=== PATIENT | female | born 1985 | race Caucasian/White ===

== ENCOUNTER 2023-04-21 09:05 | Outpatient (CLI) | payer OTHER ==
[2023-04-21 10:04] LABS: THYROID STIMULATING HORMONE 1.52 uIU/mL (0.34-5.60)
== END 2023-04-21 09:06 | disposition home or self-care (01) ==
LOC: LAB 09:05
PROVIDERS: ATTEND Nurse Practitioner
DX: O99.283 Endocrine, nutritional and metabolic diseases complicating pregnancy, third trimester (principal); E07.9 Disorder of thyroid, unspecified
CPT/HCPCS: 36415; 84439; 84443

== ENCOUNTER 2023-05-10 11:23 | Outpatient (CLI) | payer OTHER ==
--- NOTE | 2023-05-11 08:39 | Ultrasound Report ---
PROCEDURE: OB Biophysical Profile INDICATIONS: SUPERVISION OF HIGH RISK OUTSIDE/PRIOR DATING DATA: Last menstrual period (LMP): Not available. LMP-based estimated date of delivery (TANYA): Not available. First dating scan (date and location[facility]. Estimated date of delivery (TANYA) from first dating scan: 06/08/2023. TECHNIQUE: Real-time scanning was performed of the fetus, with image documentation and biometric genesis surements. Biophysical profile was also obtained. COMPARISON: None. FINDINGS: General: A single living intrauterine gestation is present. Presentation: Vertex Placenta: Placental position is posterior, without previa. Amniotic fluid index: 16.6 cm, with largest pocket 4.5 cm. heart rate: 169 beats per minute. Maternal cervical canal: 3.7 cm long; normal length is 2.5 cm or more. biometrics: Not performed Composite gestational age from initial scan: 35 weeks 6 days Measurement variability in biometric dating: +/- 10 days from 12-20 weeks gestation, +/- 2 weeks from 20-30 weeks gestation, +/- 3 weeks at 30 weeks gestation or later. Biophysical profile: Tone: 2 points. Movement: 2 points. Respiration: 2 points. Largest pocket of fluid: 2 points. Cord Doppler: S/D = 2.0-2.6. Other: Moderate hydronephrosis of the left kidney. No right hydronephrosis. IMPRESSION: 1. A single living IUP redemonstrated. The estimated gestational age is 35 weeks 6 days based on the initial outside ultrasound report. 2. biophysical profile score 8 out of 8. 3. Normal cord Doppler with preserved diastolic flow. 4. anatomy is severely limited. There is moderate hydronephrosis in the left kidney. Reviewed by: Jasiel Kaur MD on 05/11/2023 8:37 AM PDT Approved by: Jasiel Kaur MD on 05/11/2023 8:37 AM PDT Station ID: [id number]
== END 2023-05-10 11:24 | disposition home or self-care (01) ==
LOC: DI 11:23
PROVIDERS: ATTEND Nurse Practitioner
DX: O09.893 Supervision of other high risk pregnancies, third trimester (principal); O09.813 Supervision of pregnancy resulting from assisted reproductive technology, third trimester; O35.EXX0 Maternal care for other (suspected) fetal abnormality and damage, fetal genitourinary anomalies, not applicable or unspecified; Z3A.35 35 weeks gestation of pregnancy

== ENCOUNTER 2023-05-13 07:53 | Outpatient (CLI) | payer OTHER ==
[2023-05-13 08:09] VITALS: BP 123/79
--- NOTE | 2023-05-19 22:55 | PROCEDURE REPORT ---
- HPI Diagnosis/Indication for NST: Other (ivf ) Current EDU 06/08/23 Gestation 36 Weeks and 2 Days 1 Para 0 Vital Signs Temperature 98.2 F 05/13/23 08:04 Heart Rate 85 05/13/23 08:04 Respiratory Rate 16 05/13/23 08:04 Blood Pressure 123/79 05/13/23 08:04 Temperature 98.2 F 05/13/23 08:04 Heart Rate 85 05/13/23 08:04 Respiratory Rate 16 05/13/23 08:04 Blood Pressure 123/79 05/13/23 08:04 O2 Saturation If not protocol: Oxygen Flow, liters/minute - NST Procedure NST Procedure Start Date 05/13/23 Start Time 08:01 Stop Time 08:22 Patient States Movement Yes NST reviewed baseline 130. + acels, no decels. reactive NST. follow up as arranged. - Results and Plan Findings/Impression: reactive nst
== END 2023-05-13 08:25 | disposition home or self-care (01) ==
LOC: WFO 07:53 → FBP 07:54 → WFO 08:25
PROVIDERS: ATTEND Obstetrics & Gynecology
DX: O09.893 Supervision of other high risk pregnancies, third trimester (principal); O09.813 Supervision of pregnancy resulting from assisted reproductive technology, third trimester; Z3A.36 36 weeks gestation of pregnancy
CPT/HCPCS: 59025

== ENCOUNTER 2023-05-17 08:00 | Outpatient (CLI) | payer OTHER | END 2023-05-17 23:59 | disposition home or self-care (01) | LOC: LAB.WC 08:00 | PROVIDERS: ATTEND Obstetrics & Gynecology | DX: O09.893 Supervision of other high risk pregnancies, third trimester (principal) | CPT/HCPCS: 87797 ==

== ENCOUNTER 2023-05-17 09:26 | Outpatient (CLI) | payer OTHER ==
[2023-05-17 09:46] VITALS: BP 124/79
--- NOTE | 2023-05-17 10:59 | PROCEDURE REPORT ---
- HPI Current EDU 06/08/23 Gestation 36 Weeks and 6 Days 1 Para 0 Vital Signs Temperature 98.2 F 05/17/23 09:33 Heart Rate 75 05/17/23 09:33 Respiratory Rate 16 05/17/23 09:33 Blood Pressure 124/79 05/17/23 09:33 Temperature 98.2 F 05/17/23 09:33 Heart Rate 75 05/17/23 09:33 Respiratory Rate 16 05/17/23 09:33 Blood Pressure 124/79 05/17/23 09:33 O2 Saturation If not protocol: Oxygen Flow, liters/minute - NST Procedure NST Procedure Start Date 05/17/23 Start Time 09:38 Stop Time 10:05 Vibroacoustic Stimulation Used No Patient States Movement Yes - Results and Plan Plan: Patient is a 38-year-old G1, P0 at at 36 weeks 6 days gestation here for scheduled NST. NST Performed 05/17/2023 NST Read 05/17/2023 FHT: 130 bpm baseline, moderate variability, accelerations present, no decelerations. Reactive NST [place]: Quiescent Diagnosis 36 weeks gestation IVF Supervision of high-risk Continue with twice-weekly NST.
== END 2023-05-17 10:10 | disposition home or self-care (01) ==
LOC: WFO 09:26 → FBP 09:27 → WFO 10:10
PROVIDERS: ATTEND Obstetrics & Gynecology
DX: O09.813 Supervision of pregnancy resulting from assisted reproductive technology, third trimester (principal); O35.8XX0 Maternal care for other (suspected) fetal abnormality and damage, not applicable or unspecified; Z3A.36 36 weeks gestation of pregnancy
CPT/HCPCS: 59025; 87797

== ENCOUNTER 2023-05-20 07:52 | Outpatient (CLI) | payer OTHER ==
[2023-05-20 08:09] VITALS: BP 122/75
--- NOTE | 2023-05-20 11:32 | PROCEDURE REPORT ---
- HPI Diagnosis/Indication for NST: Other (IVF ) Current EDU 06/08/23 Gestation 37 Weeks and 2 Days 1 Para 0 Vital Signs Temperature 98.2 F 05/20/23 07:59 Heart Rate 80 05/20/23 07:59 Respiratory Rate 16 05/20/23 07:59 Blood Pressure 122/75 05/20/23 07:59 Temperature 98.2 F 05/20/23 07:59 Heart Rate 80 05/20/23 07:59 Respiratory Rate 16 05/20/23 07:59 Blood Pressure 122/75 05/20/23 07:59 O2 Saturation If not protocol: Oxygen Flow, liters/minute - NST Procedure NST Procedure Start Date 05/20/23 Start Time 08:03 Stop Time 08:32 Vibroacoustic Stimulation Used No Patient States Movement Yes 120 mod dottie + A cells no D cells, reactive & reassuring. - Results and Plan Findings/Impression: reactive and reassuring Plan: continue scheduled ANC.
== END 2023-05-20 08:30 | disposition home or self-care (01) ==
LOC: WFO 07:52 → FBP 07:53 → WFO 08:30
PROVIDERS: ATTEND Obstetrics & Gynecology
DX: O09.813 Supervision of pregnancy resulting from assisted reproductive technology, third trimester (principal); Z3A.37 37 weeks gestation of pregnancy
CPT/HCPCS: 59025

== ENCOUNTER 2023-05-24 08:44 | Outpatient (CLI) | payer OTHER ==
--- NOTE | 2023-05-24 14:49 | Ultrasound Report ---
PROCEDURE: OB Biophysical Profile INDICATIONS: SUPERVISION OF HIGH RISK OUTSIDE/PRIOR DATING DATA: Last menstrual period (LMP): Not available. LMP-based estimated date of delivery (TANYA): Not available. First dating scan (date and location): 05/10/2023, Dr. Puga's office. Estimated date of delivery (TANYA) from first dating scan: 06/08/2023. TECHNIQUE: Real-time scanning was performed of the fetus, with image documentation and biometric genesis surements. Biophysical profile was also obtained. Endovaginal scanning: Not performed COMPARISON: OB ultrasound dated 05/17/2023, 05/10/2023 FINDINGS: General: A single living intrauterine gestation is present. Presentation: Vertex Placenta: Placental position is posterior, without previa. Amniotic fluid index: 15.6 cm, 64.1% for gestational age. heart rate: 138 beats per minute. Maternal cervical canal: 3.9 cm long; normal length is 2.5 cm or more. Biophysical profile: Tone: 2 points. Movement: 2 points. Respiration: 2 points. Largest pocket of fluid: 2 points. Umbilical artery Doppler: 4.4, 3.5, 2.8 There is incidentally noted hydronephrosis of the left renal kidney. IMPRESSION: 1. 8 biophysical profile. 2. Abnormally elevated umbilical artery S/D ratios. 3. Left hydronephrosis. renal ultrasound recommended for follow-up. Reviewed by: Junie Lawrence MD on 05/24/2023 2:47 PM PST Approved by: Junie Lawrence MD on 05/24/2023 2:47 PM PST Station ID: [id number]
== END 2023-05-24 08:45 | disposition home or self-care (01) ==
LOC: DI 08:44
PROVIDERS: ATTEND Nurse Practitioner
DX: O09.893 Supervision of other high risk pregnancies, third trimester (principal); O09.813 Supervision of pregnancy resulting from assisted reproductive technology, third trimester; O35.8XX0 Maternal care for other (suspected) fetal abnormality and damage, not applicable or unspecified; Z3A.00 Weeks of gestation of pregnancy not specified

== ENCOUNTER 2023-05-24 08:47 | Outpatient (CLI) | payer OTHER ==
[2023-05-24 09:35] VITALS: BP 129/83; O2SAT 99
--- NOTE | 2023-05-28 11:55 | PROCEDURE REPORT ---
- HPI Current EDU 06/08/23 Gestation 37 Weeks and 6 Days 1 Para 0 Vital Signs Temperature 98.2 F 05/24/23 08:50 Temperature 98.2 F 05/24/23 09:31 Heart Rate 72 05/24/23 09:31 Respiratory Rate 17 05/24/23 09:31 Blood Pressure 129/83 H 05/24/23 09:31 O2 Saturation 99 05/24/23 09:31 If not protocol: Oxygen Flow, liters/minute NST reviewed in real time. moderate variability. + acels. no decels. baseline 130. - NST Procedure NST Procedure Start Date 05/24/23 Start Time 09:30 Stop Time 09:52 Vibroacoustic Stimulation Used No Patient States Movement Yes - Results and Plan Findings/Impression: reactive NST Plan: care as scheduled.
== END 2023-05-24 09:55 | disposition home or self-care (01) ==
LOC: FBP 08:47 → WFO 08:47
PROVIDERS: ATTEND Obstetrics & Gynecology
DX: O09.813 Supervision of pregnancy resulting from assisted reproductive technology, third trimester (principal); O09.513 Supervision of elderly primigravida, third trimester; O09.893 Supervision of other high risk pregnancies, third trimester; O35.8XX0 Maternal care for other (suspected) fetal abnormality and damage, not applicable or unspecified; Z3A.37 37 weeks gestation of pregnancy
CPT/HCPCS: 59025

== ENCOUNTER 2023-05-27 07:52 | Outpatient (CLI) | payer OTHER | END 2023-05-27 07:53 | disposition home or self-care (01) | LOC: WFO 07:52 | PROVIDERS: ATTEND Obstetrics & Gynecology | DX: Z53.9 Procedure and treatment not carried out, unspecified reason (principal) ==

== ENCOUNTER 2023-05-27 07:54 | Outpatient (CLI) | payer OTHER ==
[2023-05-27 08:06] VITALS: BP 129/85
--- NOTE | 2023-05-27 08:45 | PROCEDURE REPORT ---
- HPI Diagnosis/Indication for NST: Other (1. IVF 2. Advanced maternal age) Vital Signs Temperature 97.9 F 05/27/23 08:01 Heart Rate 67 05/27/23 08:01 Respiratory Rate 18 05/27/23 08:01 Blood Pressure 129/85 H 05/27/23 08:01 Temperature 97.9 F 05/27/23 08:01 Heart Rate 67 05/27/23 08:01 Respiratory Rate 18 05/27/23 08:01 Blood Pressure 129/85 H 05/27/23 08:01 O2 Saturation If not protocol: Oxygen Flow, liters/minute - NST Procedure NST Procedure Start Time 09:30 Stop Time 09:52 NST for advanced maternal age and IVF 38+ weeks 120, moderate variability, +accels, no decels Reactive NST
== END 2023-05-27 08:52 | disposition home or self-care (01) ==
LOC: WFO 07:54 → FBP 07:54 → WFO 08:52
PROVIDERS: ATTEND Obstetrics & Gynecology Obstetrics
DX: O09.813 Supervision of pregnancy resulting from assisted reproductive technology, third trimester (principal); O09.893 Supervision of other high risk pregnancies, third trimester; Z3A.38 38 weeks gestation of pregnancy
CPT/HCPCS: 59025

== ENCOUNTER 2023-05-29 07:57 | Outpatient (CLI) | payer OTHER ==
--- NOTE | 2023-05-29 12:16 | Ultrasound Report ---
PROCEDURE: OB F/U or Repeat INDICATIONS: SUPERVISION OF HIGH RISK OUTSIDE/PRIOR DATING DATA: Last menstrual period (LMP): Not available. LMP-based estimated date of delivery (TANYA): Not available. First dating scan (date and location): 05/10/2023, Dr. Puga's office. Estimated date of delivery (TANYA) from first dating scan: 06/08/2023. The following data was generated with working TANYA 06/08/2023. TECHNIQUE: Real-time scanning was performed of the fetus, with image documentation and biometric measurements. Endovaginal scanning: Not performed. COMPARISON: OB ultrasound, 05/24/2023. FINDINGS: General: A single living intrauterine gestation is present. Presentation: Cephalic. Placenta: Placental position is posterior, without previa. Amniotic fluid index: 14.0 cm. Largest pocket 4.8 cm. heart rate: 129 beats per minute. Maternal cervical canal: Closed measuring 3.1 cm long; normal length is 2.5 cm or more. biometrics: Biparietal diameter: 9.05 cm; 36 weeks 5 days; 26.9%. Head circumference: 33.25 cm; 38 weeks 0 day; 20.6%. Abdominal circumference: 34.09 cm; 38 weeks 0 day; 54.1%. Femur length: 7.28 cm; 37 weeks 2 days; 22.8%. Estimated gestational age from initial scan: 38 weeks 4 days. Composite gestational age from present scan: 37 weeks 4 days Estimated weight and percentile: 3272 g; 42.6% for gestational age. Measurement variability in biometric dating: +/- 10 days from 12-20 weeks gestation, +/- 2 weeks from 20-30 weeks gestation, +/- 3 weeks at 30 weeks gestation or more. Other: Left hydronephrosis measuring 9.4 mm (previously measuring 8.4 mm 05/24/2023). ? mild dil ated left ureter. Bladder did not empty during scanning in 40 minutes time span. IMPRESSION: 1. Single living IUP redemonstrated. 2. There is appropriate interval growth. 3. The estimated weight is 3272 g; 42.6% for gestational age. 4. Normal TYLOR. 5. Persistent left hydronephrosis seen kidney. Reviewed by: Jasiel Kaur MD on 05/29/2023 12:15 PM PST Approved by: Jasiel Kaur MD on 05/29/2023 12:15 PM PST Station ID: [id number]
== END 2023-05-29 07:58 | disposition home or self-care (01) ==
LOC: DI 07:57
PROVIDERS: ATTEND Obstetrics & Gynecology
DX: O09.893 Supervision of other high risk pregnancies, third trimester (principal); O35.8XX0 Maternal care for other (suspected) fetal abnormality and damage, not applicable or unspecified; Z3A.37 37 weeks gestation of pregnancy

== ENCOUNTER 2023-05-31 07:59 | Outpatient (CLI) | payer OTHER ==
[2023-05-31 09:00] VITALS: BP 113/81
--- NOTE | 2023-05-31 14:09 | PROCEDURE REPORT ---
- HPI Diagnosis/Indication for NST: Other (NST: 120 mod dottie + A cells no D cells reactive) Current EDU 06/08/23 Gestation 38 Weeks and 6 Days 1 Para 0 Vital Signs Temperature 98.1 F 05/31/23 08:54 Heart Rate 84 05/31/23 08:54 Respiratory Rate 16 05/31/23 08:54 Blood Pressure 113/81 H 05/31/23 08:54 Temperature 98.1 F 05/31/23 08:54 Heart Rate 84 05/31/23 08:54 Respiratory Rate 16 05/31/23 08:54 Blood Pressure 113/81 H 05/31/23 08:54 O2 Saturation If not protocol: Oxygen Flow, liters/minute - NST Procedure NST Procedure Start Date 05/31/23 Start Time 08:15 Stop Time 09:12 Vibroacoustic Stimulation Used No - Results and Plan Plan: OK to continue with scheduled ANC. had BPP this morning 02/21. dilated L renal system - discussed with pt, awaiting M recs. likely OK to deliver here.
== END 2023-05-31 09:20 | disposition home or self-care (01) ==
LOC: WFO 07:59 → FBP 08:45 → WFO 09:20
PROVIDERS: ATTEND Obstetrics & Gynecology
DX: O09.813 Supervision of pregnancy resulting from assisted reproductive technology, third trimester (principal); O09.513 Supervision of elderly primigravida, third trimester; O35.EXX0 Maternal care for other (suspected) fetal abnormality and damage, fetal genitourinary anomalies, not applicable or unspecified; O09.893 Supervision of other high risk pregnancies, third trimester; Z3A.38 38 weeks gestation of pregnancy
CPT/HCPCS: 59025

== ENCOUNTER 2023-05-31 08:15 | Outpatient (CLI) | payer OTHER ==
--- NOTE | 2023-05-31 18:43 | Ultrasound Report ---
PROCEDURE: OB Biophysical Profile INDICATIONS: SUPERVISION OF HIGH RISK OUTSIDE/PRIOR DATING DATA: Last menstrual period (LMP): Unknown. LMP-based estimated date of delivery (TANYA): Unknown. First dating scan (date and location): Unknown. Estimated date of delivery (TANYA) from first dating scan: Unknown. The below data below was generated using the working TANYA of 06/08/2023 TECHNIQUE: Real-time scanning was performed of the fetus, with image documentation and biometric genesis surements. Biophysical profile was also obtained. Endovaginal scanning: None COMPARISON: None. FINDINGS: General: A single living intrauterine gestation is present. Presentation: Cephalic Placenta: Placental position is posterior, without previa. Amniotic fluid index: 14 cm, 36.9 percentile for gestational age. heart rate: 129 beats per minute. Maternal cervical canal: 3.1 cm long; normal length is 2.5 cm or more. biometrics: Biparietal diameter: 9.05 cm, 36 week 5 day, 21 percentile Head circumference: 33.2 cm, 38 week 0 day, 21 percentile Abdominal circumference: 34.1 cm, 38 week 0 day, 24 percentile, Femur length: 7.3 cm, 37 week 2 day, 23 percentile Estimated gestational age from initial scan: 38 week 4 day Composite gestational age from present scan: 37 week 4 day Estimated weight and percentile: 2211 g, 42.6 percentile Measurement variability in biometric dating: +/- 10 days from 12-20 weeks gestation, +/- 2 weeks from 20-30 weeks gestation, +/- 3 weeks at 30 weeks gestation or later. Left sided renal collecting system measures 1.0 cm. Remainder of the anatomy within normal limi ts. IMPRESSION: Single live intrauterine consistent with a 37 week 4 day gestation. Left-sided hydronephrosis, 1 cm Reviewed by: Zhen Frances MD on 05/31/2023 5:42 PM [place] Approved by: Zhen Frances MD on 05/31/2023 5:42 PM [place] Station ID: [id number]
== END 2023-05-31 08:16 | disposition home or self-care (01) ==
LOC: DI 08:15
PROVIDERS: ATTEND Nurse Practitioner
DX: O09.893 Supervision of other high risk pregnancies, third trimester (principal); O09.813 Supervision of pregnancy resulting from assisted reproductive technology, third trimester; O35.EXX0 Maternal care for other (suspected) fetal abnormality and damage, fetal genitourinary anomalies, not applicable or unspecified; Z3A.37 37 weeks gestation of pregnancy

== ENCOUNTER 2023-06-03 08:11 | Outpatient (CLI) | payer OTHER ==
[2023-06-03 08:36] VITALS: BP 127/85
--- NOTE | 2023-06-03 09:37 | PROCEDURE REPORT ---
- HPI Diagnosis/Indication for NST: Other (IVF advanced maternal age) Vital Signs Temperature 98 F 06/03/23 08:24 Heart Rate 81 06/03/23 08:24 Respiratory Rate 16 06/03/23 08:24 Blood Pressure 127/85 H 06/03/23 08:24 Temperature 98 F 06/03/23 08:24 Heart Rate 81 06/03/23 08:24 Respiratory Rate 16 06/03/23 08:24 Blood Pressure 127/85 H 06/03/23 08:24 O2 Saturation If not protocol: Oxygen Flow, liters/minute - NST Procedure NST Procedure Start Time 08:15 Stop Time 09:12 39+2 weeks 130, moderate variability, +accels, no decels reactive NST
== END 2023-06-03 09:00 | disposition home or self-care (01) ==
LOC: WFO 08:11 → FBP 08:12 → WFO 09:00
PROVIDERS: ATTEND Obstetrics & Gynecology Obstetrics
DX: O09.813 Supervision of pregnancy resulting from assisted reproductive technology, third trimester (principal); O09.893 Supervision of other high risk pregnancies, third trimester; Z3A.39 39 weeks gestation of pregnancy
CPT/HCPCS: 59025

== ENCOUNTER 2023-06-07 10:25 | Outpatient (CLI) | payer OTHER ==
[2023-06-07 10:51] VITALS: BP 125/80
--- NOTE | 2023-06-07 13:56 | Ultrasound Report ---
PROCEDURE: OB Biophysical Profile INDICATIONS: non reassuring NST OUTSIDE/PRIOR DATING DATA: Last menstrual period (LMP): Unknown. LMP-based estimated date of delivery (TANYA): Unknown. First dating scan (date and location): 05/10/2023. Estimated date of delivery (TANYA) from first dating scan: 06/08/2023. The below data below was generated using the ultrasound TANYA of 06/08/2023 TECHNIQUE: Real-time scanning was performed of the fetus, with image documentation and biometric genesis surements. Biophysical profile was also obtained. Endovaginal scanning: Not performed COMPARISON: 05/31/2023 FINDINGS: General: A single living intrauterine gestation is present. Presentation: Vertex Placenta: Placental position is posterior, without previa. Amniotic fluid index: 15.8 cm, within normal limits for gestational age. heart rate: 150 beats per minute. Maternal cervical canal: Not seen at late stage of Estimated gestational age from initial scan: 39 weeks 6 days Measurement variability in biometric dating: +/- 10 days from 12-20 weeks gestation, +/- 2 weeks from 20-30 weeks gestation, +/- 3 weeks at 30 weeks gestation or later. Again noted is left hydronephrosis, moderate to severe. Biophysical profile: Tone: 2 points. Movement: 2 points. Respiration: 0 points. Largest pocket of fluid: 2 points. Umbilical artery Doppler: 2.66, 2.68, 2.35 IMPRESSION: 1. Living late third trimester intrauterine . 2. Continued left hydronephrosis, moderate to severe. 3. Ultrasound biophysical profile is 6 out of 8. 4. Normal cord Dopplers. Reviewed by: Jerrell Brewer MD on 06/07/2023 1:38 PM PST Approved by: Jerrell Brewer MD on 06/07/2023 1:38 PM PST Station ID: [id number]
--- NOTE | 2023-06-07 13:59 | PROCEDURE REPORT ---
- HPI Diagnosis/Indication for NST: Other Vital Signs Temperature 99.0 F 06/07/23 10:38 Heart Rate 71 06/07/23 10:38 Respiratory Rate 16 06/07/23 10:38 Blood Pressure 125/80 06/07/23 10:38 Temperature 99.0 F 06/07/23 10:38 Heart Rate 71 06/07/23 10:38 Respiratory Rate 16 06/07/23 10:38 Blood Pressure 125/80 06/07/23 10:38 O2 Saturation If not protocol: Oxygen Flow, liters/minute - NST Procedure NST Procedure Start Time 08:17 Stop Time 08:53 125 mod dottie + A cells, one dottie D Cell so was kept on monitor and BPP done - TYLOR 15+, and no further D cells, 8/10 BPP (-2 for breathing) -- OK to D/C home with precautions - Results and Plan Plan: discussed option for IOL vs expectant MGMT with patient -- she prefers expectant management at this point. Low threshold to return to L&D, precautions reviewed has another NST scheduled on Monday.
== END 2023-06-07 13:35 | disposition home or self-care (01) ==
LOC: WFO 10:25 → FBP 10:27 → WFO 13:35
PROVIDERS: ATTEND Obstetrics & Gynecology
DX: O09.813 Supervision of pregnancy resulting from assisted reproductive technology, third trimester (principal); O09.893 Supervision of other high risk pregnancies, third trimester; O35.EXX0 Maternal care for other (suspected) fetal abnormality and damage, fetal genitourinary anomalies, not applicable or unspecified; Z3A.39 39 weeks gestation of pregnancy
CPT/HCPCS: 59025

== ENCOUNTER 2023-06-10 08:01 | Outpatient (CLI) | payer OTHER ==
[2023-06-10 09:09] VITALS: BP 128/83; O2SAT 100
--- NOTE | 2023-06-10 09:41 | PROCEDURE REPORT ---
- HPI Diagnosis/Indication for NST: Other (IVF ) Vital Signs Temperature 97.9 F 06/10/23 08:12 Heart Rate 85 06/10/23 08:12 Respiratory Rate 16 06/10/23 08:12 Blood Pressure 126/86 H 06/10/23 08:12 Temperature 97.9 F 06/10/23 08:12 Heart Rate 72 06/10/23 09:05 Respiratory Rate 16 06/10/23 09:05 Blood Pressure 128/83 H 06/10/23 09:05 O2 Saturation 100 06/10/23 09:05 If not protocol: Oxygen Flow, liters/minute - NST Procedure NST Procedure Start Time 10:32 Stop Time 11:50 - Results and Plan Plan: Patient is a 38-year-old G1, P0 at 40 weeks 2 days gestation here for scheduled NST. NST Performed 06/10/2023 NST Read 06/10/2023 FHT: 135 bpm baseline, moderate variability, accelerations present, no decelerations. Reactive NST [place]: Rare Diagnosis 40 weeks gestation IVF -Declines induction. Agrees to induction on 06/14/2023. Will come to clinic 06/12 for membrane sweep. Discussed labor precautions, decreased movement, kick counts. Continue with twice-weekly NST.
== END 2023-06-10 09:30 | disposition home or self-care (01) ==
LOC: WFO 08:01 → FBP 08:03 → WFO 09:30
PROVIDERS: ATTEND Obstetrics & Gynecology
DX: O09.813 Supervision of pregnancy resulting from assisted reproductive technology, third trimester (principal); O48.0 Post-term pregnancy; O09.513 Supervision of elderly primigravida, third trimester; O09.893 Supervision of other high risk pregnancies, third trimester; Z3A.40 40 weeks gestation of pregnancy
CPT/HCPCS: 59025

== ENCOUNTER 2023-06-14 16:52 | Inpatient (IN) | payer OTHER ==
[2023-06-14] MEDS ORDERED: hydrALAZINE INJ 20 MG/ML VIAL IVP PRN ×2 (17:44)
[2023-06-14] MEDS ORDERED: ACETAMINOPHEN 500 MG TABLET PO PRN (17:44)
[2023-06-14] MEDS ORDERED: NIFEdipine 10 MG CAPSULE PO PRN (17:44)
[2023-06-14] MEDS ORDERED: miSOPROStoL 200 MCG TABLET BC PRN (17:44)
[2023-06-14] MEDS ORDERED: ONDANSETRON ODT 4 MG TABLET PO PRN (17:44)
[2023-06-14] MEDS ORDERED: TRANEXAMIC ACID IN NACL 1,000 MG/100 ML BAG IV PRN (17:44)
[2023-06-14] MEDS ORDERED: miSOPROStoL 200 MCG TABLET PR PRN (17:44)
[2023-06-14] MEDS ORDERED: METOCLOPRAMIDE 10 MG/2 ML VIAL IVP PRN (17:44)
[2023-06-14] MEDS ORDERED: OXYTOCIN/SODIUM CHLORIDE 500 ML IV PRN (17:44)
[2023-06-14] MEDS ORDERED: CARBOPROST TROMETHAMINE 250 MCG/ML AMP IM PRN (17:44)
[2023-06-14] MEDS ORDERED: LABETALOL 20 MG/4 ML SYRINGE IVP PRN ×3 (17:44)
[2023-06-14] MEDS ORDERED: diphenhydrAMINE INJ 50 MG/ML VIAL IVP PRN (17:44)
[2023-06-14] MEDS ORDERED: OXYTOCIN 10 UNIT/ML VIAL IM PRN (17:44)
[2023-06-14] MEDS ORDERED: fentaNYL 100 MCG/2 ML VIAL IVP PRN (17:44)
[2023-06-14] MEDS ORDERED: lidocaine 1% 20 ML MDV ID PRN (17:44)
[2023-06-14] MEDS ORDERED: METHYLERGONOVINE 0.2 MG/ML VIAL IM PRN (17:44)
[2023-06-14] MEDS ORDERED: CALCIUM CARBONATE CHEW 500 MG TABLET PO PRN (17:44)
[2023-06-14] MEDS ORDERED: TERBUTALINE 1 MG/ML VIAL SUBQ PRN (17:44)
--- NOTE | 2023-06-14 17:57 | HISTORY & PHYSICAL EXAMINATION ---
Admit History - Visit Reason Visit Reason: Other (labor induction at 41 weeks ga tomorrow.) - : 1 Care: positive: [facility] Risk/History: positive: Labor induction, Other (IVF ) Complications This : positive: None Smoking Status: Never smoker - Mother's Labs Mother's Blood Type: positive: A Mother's RH: positive: Positive GBS: positive: Group B Step Negative Rubella Status: positive: Equivocal - HPI Current EDU 06/08/23 Gestation 40 Weeks and 6 Days 1 Vital Signs Temperature 98.8 F 06/14/23 17:37 Heart Rate 78 06/14/23 17:37 Respiratory Rate 16 06/14/23 17:37 Blood Pressure 138/96 H 06/14/23 17:37 Temperature 98.8 F 06/14/23 17:37 Heart Rate 78 06/14/23 17:37 Respiratory Rate 16 06/14/23 17:37 Blood Pressure 138/96 H 06/14/23 17:37 O2 Saturation If not protocol: Oxygen Flow, liters/minute - NST Procedure NST Procedure Start Time 08:31 Stop Time 09:01 Meds/Allgy - Home Medications Home Medications: Ambulatory Orders Medication Instructions Recorded Confirmed Aspirin [Aspirin EC] 81 mg PO 06/14/23 Levothyroxine Sodium [Synthroid] 75 mcg PO DAILY 06/14/23 06/14/23 Pnv No.95/Ferrous Fum/Folic AC 1 tab DAILY 06/14/23 06/14/23 [ Cap[place]] - Allergies Allergies/Adverse Reactions: Allergies Allergy/AdvReac Type Severity Reaction Status Date / Time Sulfa (Sulfonamide Allergy Rash Verified 06/07/23 11:35 Antibiotics) Review of Systems - Constitutional Constitutional: reports: Fatigue - Gastrointestinal Gastrointestinal: denies: Abdominal pain - Neurological Neurological: denies: Headache - Other Findings Other Findings: no vag bleeding or ROM. + movement Physical - Abdominal Exam Vital Signs: Temp Pulse Resp BP Pulse Ox O2 Flow Rate 98.8 F 78 16 138/96 H 06/14/23 17:37 06/14/23 17:37 06/14/23 17:37 06/14/23 17:37 Contraction Intensity: positive: Mild Uterine Resting Tone: positive: Soft - Monitoring Strip Review: positive: Category I - Presentation Presentation: positive: Vertex - Vaginal Exam Membranes: positive: Membranes intact Dilation (in cm): 1.5 Effacement (%): 80 Station: positive: -3 Cervical Position: positive: Midposition - Speculum Exam Speculum Exam Performed: positive: No Plan for Labor - Plan For Labor I expect patient to be DC'd or transferred within 96 hours.: Yes Plan for Labor: 41 weeks tomorrow. IVF . declined induciton until now but agrees now. hopes for natural labor as much as possible. expectations discussed. plan reviewed. consents signed. will start with miso 25 mcg vag
[2023-06-14 18:01] LABS: BASOPHILS # (AUTO) 0.1 10^3/uL (0.0-0.1); BASOPHILS % (AUTO) 0.5 %; EOSINOPHILS # (AUTO) 0.1 10^3/uL (0.0-0.7); EOSINOPHILS % (AUTO) 0.6 %; HCT - HEMATOCRIT 38.6 % (37.0-47.0); HGB - HEMOGLOBIN 13.3 g/dL (12.0-16.0); LYMPHOCYTES # (AUTO) 1.7 10^3/uL (1.5-3.5); LYMPHOCYTES % (AUTO) 16.2 %; MEAN CORPUSCULAR HEMOGLOBIN 31.1 pg (27.0-31.0); MEAN CORPUSCULAR HGB CONC 34.5 g/dL (32.0-36.0); MEAN CORPUSCULAR VOLUME 90.2 fL (81.0-99.0); MEAN PLATELET VOLUME 11.7 fL (7.9-10.8); MONOCYTES # (AUTO) 0.7 10^3/uL (0.0-1.0); MONOCYTES % (AUTO) 6.5 %; NEUTROPHILS % (AUTO) 75.8 %; PLT - PLATELET COUNT 289 10^3/uL (130-450); RED BLOOD COUNT 4.28 10^6/uL (4.20-5.40); RED CELL DISTRIBUTION WIDTH 12.5 % (12.0-15.0); WHITE BLOOD COUNT 10.5 x10^3/uL (4.8-10.8)
[2023-06-14 18:23] LABS: ALBUMIN 3.6 g/dL (3.2-5.5); ALBUMIN/GLOBULIN RATIO 1.1 (1.0-2.2); BILIRUBIN,TOTAL 0.3 mg/dL (0.2-1.0); CALCIUM 9.3 mg/dL (8.5-10.3); CREATININE 0.6 mg/dL (0.6-1.3); POTASSIUM 3.9 mmol/L (3.5-4.5)
[2023-06-14] MEDS: miSOPROStoL 100 MCG TABLET BC SCH ×2 (18:30→22:27)
[2023-06-14 19:10] LABS: CREATININE,URINE 183.6 mg/dL; PROTEIN/CREATININE RATIO,URINE 0.1 (<=0.2)
--- NOTE | 2023-06-14 19:57 | PROVIDER PROGRESS NOTE ---
Subjective - Subjective Subjective: labs reviewed and normal. last bps were normal after high bp on admit. continue miso induction. Objective - Vital Signs/Intake & Output Vital Signs: Vital Signs x48h Temp Pulse Resp BP 06/14/23 17:37 98.8 F 78 16 138/96 H Intake & Output: Intake & Output 06/11/23 06/12/23 06/13/23 06/14/23 23:59 23:59 23:59 23:59 Intake Total 300 Balance 300 - Lab Results Fish Bones: 06/14/23 17:20 06/14/23 17:20 Other Labs: Lab Results x24hrs 06/14/23 06/14/23 06/14/23 Range/Units 18:29 17:20 17:20 WBC 10.5 (4.8-10.8) x10^3/uL RBC 4.28 (4.20-5.40) 10^6/uL Hgb 13.3 (12.0-16.0) g/dL Hct 38.6 (37.0-47.0) % MCV 90.2 (81.0-99.0) fL MCH 31.1 H (27.0-31.0) pg MCHC 34.5 (32.0-36.0) g/dL RDW 12.5 (12.0-15.0) % Plt Count 289 (130-450) 10^3/uL MPV 11.7 H (7.9-10.8) fL Neut # (Auto) 8.0 H (1.5-6.6) 10^3/uL Lymph # (Auto) 1.7 (1.5-3.5) 10^3/uL [place] # (Auto) 0.7 (0.0-1.0) 10^3/uL Eos # (Auto) 0.1 (0.0-0.7) 10^3/uL Baso # (Auto) 0.1 (0.0-0.1) 10^3/uL Absolute Nucleated RBC 0.00 x10^3/uL Nucleated RBC % 0.0 /100WBC Sodium (135-145) mmol/L Potassium (3.5-4.5) mmol/L Chloride (101-111) mmol/L Carbon Dioxide (21-32) mmol/L Anion Gap (6-13) BUN (6-20) mg/dL Creatinine (0.6-1.3) mg/dL Estimated GFR (MDRD) (>89) Glucose (74-104) mg/dL Uric Acid (2.3-6.6) mg/dL Calcium (8.5-10.3) mg/dL Total Bilirubin (0.2-1.0) mg/dL AST (10-42) IU/L ALT (10-60) IU/L Alkaline Phosphatase (42-121) IU/L Total Protein (6.4-8.9) g/dL Albumin (3.2-5.5) g/dL Globulin (2.1-4.2) g/dL Albumin/Globulin Ratio (1.0-2.2) Urine Creatinine 183.6 mg/dL Ur Total Protein Timed 15 mg/dL Protein/Creatinin Ratio 0.1 (<=0.2) Blood Type A POSITIVE Antibody Screen NEGATIVE 06/14/23 06/14/23 Range/Units 17:20 17:20 WBC (4.8-10.8) x10^3/uL RBC (4.20-5.40) 10^6/uL Hgb (12.0-16.0) g/dL Hct (37.0-47.0) % MCV (81.0-99.0) fL MCH (27.0-31.0) pg MCHC (32.0-36.0) g/dL RDW (12.0-15.0) % Plt Count (130-450) 10^3/uL MPV (7.9-10.8) fL Neut # (Auto) (1.5-6.6) 10^3/uL Lymph # (Auto) (1.5-3.5) 10^3/uL [place] # (Auto) (0.0-1.0) 10^3/uL Eos # (Auto) (0.0-0.7) 10^3/uL Baso # (Auto) (0.0-0.1) 10^3/uL Absolute Nucleated RBC x10^3/uL Nucleated RBC % /100WBC Sodium 136 (135-145) mmol/L Potassium 3.9 (3.5-4.5) mmol/L Chloride 106 (101-111) mmol/L Carbon Dioxide 22 (21-32) mmol/L Anion Gap 8.0 (6-13) BUN 11 (6-20) mg/dL Creatinine 0.6 (0.6-1.3) mg/dL Estimated GFR (MDRD) 113 (>89) Glucose 80 (74-104) mg/dL Uric Acid 4.5 (2.3-6.6) mg/dL Calcium 9.3 (8.5-10.3) mg/dL Total Bilirubin 0.3 (0.2-1.0) mg/dL AST 18 (10-42) IU/L ALT 14 (10-60) IU/L Alkaline Phosphatase 106 (42-121) IU/L Total Protein 7.0 (6.4-8.9) g/dL Albumin 3.6 (3.2-5.5) g/dL Globulin 3.4 (2.1-4.2) g/dL Albumin/Globulin Ratio 1.1 (1.0-2.2) Urine Creatinine mg/dL Ur Total Protein Timed mg/dL Protein/Creatinin Ratio (<=0.2) Blood Type Antibody Screen
[2023-06-15] MEDS: miSOPROStoL 100 MCG TABLET BC SCH ×2 (02:17→09:14)
[2023-06-15] MEDS: SODIUM CHLORIDE FLUSH 0.9% 10 ML SYRINGE IVP SCH ×2 (02:18→16:21)
[2023-06-15] MEDS: LEVOTHYROXINE 75 MCG TABLET PO SCH (07:37)
--- NOTE | 2023-06-15 09:27 | PROVIDER PROGRESS NOTE ---
Labor Progress Note - Uterine Monitoring Uterine Monitoring Mode: positive: External toco Contraction Frequency (min/apart): 2-5 Contraction Intensity: positive: Mild to moderate Uterine Resting Tone: positive: Soft - Monitoring Monitor Mode: positive: External ultrasound Heart Rate Baseline: 130 Heart Rate Variability: positive: Moderate (6-25 bmp) Accelerations: positive: Present, 15x15 Decelerations: positive: None Strip Review: positive: Category I - Labor Progress Note Labor Progress Note/Additional Text: Patient received last dose of misoprostol at 0914, currently 4/6 doses. Feeling very comfortable. Patient sat up to eat around 0815 and had possible decelerations versus difficulty tracing heart rate, but had 1 hour of category 1 tracing thereafter before dose of misoprostol. Overall tolerating well, but will continue to monitor for signs of intolerance.
--- NOTE | 2023-06-15 15:11 | ANESTHESIA ---
Pre-Anesthesia VS, & Labs - Diagnosis labor induction - Procedure labor epidural (upon request) Vital Signs: Temp Pulse Resp BP Pulse Ox O2 Flow Rate 36.7 C 65 16 125/76 100 06/14/23 22:20 06/14/23 22:20 06/14/23 22:20 06/14/23 22:20 06/14/23 22:20 Height: 5 ft 4 in Weight (kg): 105.687 kg Body Mass Index: 39.9 BMI Classification: Obese - NPO Other (clears after placement) - Is Patient ?: Yes - Lab Results Current Lab Results: Laboratory Tests 06/14/23 17:20: WBC 10.5, RBC 4.28, Hgb 13.3, Hct 38.6, MCV 90.2, MCH 31.1 H, MCHC 34.5, RDW 12.5, Plt Count 289, MPV 11.7 H, Neut # (Auto) 8.0 H, Lymph # (Auto) 1.7, Gilchrist # (Auto) 0.7, Eos # (Auto) 0.1, Baso # (Auto) 0.1, Absolute Nucleated RBC 0.00, Nucleated RBC % 0.0 06/14/23 17:20: Blood Type A POSITIVE, Antibody Screen NEGATIVE 06/14/23 17:20: Uric Acid 4.5 06/14/23 17:20: Sodium 136, Potassium 3.9, Chloride 106, Carbon Dioxide 22, Anion Gap 8.0, BUN 11, Creatinine 0.6, Estimated GFR (MDRD) 113, Glucose 80, Calcium 9.3, Total Bilirubin 0.3, AST 18, ALT 14, Alkaline Phosphatase 106, Total Protein 7.0, Albumin 3.6, Globulin 3.4, Albumin/Globulin Ratio 1.1 Fish Bones: 06/14/23 17:20 06/14/23 17:20 Home Medications and Allergies Home Medications: Ambulatory Orders Aspirin [Aspirin EC] 81 mg PO 06/14/23 Levothyroxine Sodium [Synthroid] 75 mcg PO DAILY 06/14/23 Pnv No.95/Ferrous Fum/Folic AC [ Caplet] 1 tab DAILY 06/14/23 Active Medications Acetaminophen (Acetaminophen 500 Mg Tablet) 1,000 mg PO Q8HR PRN PRN Reason: Mild Pain or Fever>38C(100.4F) Calcium Carbonate/Glycine (Calcium Carbonate Chew 500 Mg Tablet) 1,000 mg PO Q6HR PRN PRN Reason: Heartburn Carboprost Tromethamine (Carboprost Tromethamine 250 Mcg/Ml Amp) 250 mcg IM .ONCE PRN PRN Reason: Hemorrhage Diphenhydramine HCl (Diphenhydramine Inj 50 Mg/Ml Vial) 25 mg IVP Q6H PRN PRN Reason: Allergy Symptoms Fentanyl (Fentanyl 100 Mcg/2 Ml Vial) 50 mcg IVP Q1H PRN PRN Reason: Severe Pain (score 7-10) Hydralazine HCl (Hydralazine Inj 20 Mg/Ml Vial) 5 - 10 mg IVP Q20M PRN; Protocol PRN Reason: SBP> or= 160 OR DBP> or= 110 Hydralazine HCl (Hydralazine Inj 20 Mg/Ml Vial) 10 mg IVP .ONCE PRN; Protocol PRN Reason: SBP> or= 160 OR DBP> or= 110 Lactated Ringer's (Lr) 500 mls @ 999 mls/hr IV PRN PRN PRN Reason: hypotension Oxytocin/Sodium Chloride (Pitocin/Sodium Chloride) 500 mls @ 999 mls/hr IV PRN PRN; Protocol PRN Reason: POST- HEMORR PREVENTION Tranexamic Acid (Tranexamic 1,000 Mg/100ml-Nacl) 1,000 mg in 100 mls @ 600 mls/hr IV Q30M PRN PRN Reason: EBL >1200mL and within 3hr Labetalol HCl (Labetalol 20 Mg/4 Ml Syringe) 20 - 80 mg IVP Q10M PRN; Protocol PRN Reason: SBP> or= 160 OR DBP> or= 110 Labetalol HCl (Labetalol 20 Mg/4 Ml Syringe) 20 mg IVP .ONCE PRN; Protocol PRN Reason: SBP> or= 160 OR DBP> or= 110 Labetalol HCl (Labetalol 20 Mg/4 Ml Syringe) 20 - 40 mg IVP Q10M PRN; Protocol PRN Reason: SBP> or= 160 OR DBP> or= 110 Levothyroxine Sodium (Levothyroxine 75 Mcg Tablet) 75 mcg PO QDAC MARLEN Last Admin: 06/15/23 07:37 Dose: 75 mcg Lidocaine HCl (Lidocaine 1% 20 Ml Mdv) 20 ml ID .ONCE PRN PRN Reason: PERINEAL REPAIR Stop: 06/17/23 17:45 Methylergonovine Maleate (Methylergonovine 0.2 Mg/Ml Vial) 0.2 mg IM .ONCE PRN PRN Reason: Hemorrhage Metoclopramide HCl (Metoclopramide 10 Mg/2 Ml Vial) 5 mg IVP Q6HR PRN PRN Reason: Nausea / Vomiting Misoprostol (Misoprostol 200 Mcg Tablet) 600 mcg BC .ONCE PRN PRN Reason: Hemorrhage Misoprostol (Misoprostol 200 Mcg Tablet) 800 mcg LA .ONCE PRN PRN Reason: Hemorrhage Nifedipine (Nifedipine 10 Mg Capsule) 10 - 20 mg PO Q20M PRN; Protocol PRN Reason: SBP> or= 160 OR DBP> or= 110 Ondansetron HCl (Ondansetron Odt 4 Mg Tablet) 4 mg PO Q4HR PRN PRN Reason: Nausea / Vomiting Oxytocin (Oxytocin 10 Unit/Ml Vial) 10 unit IM .ONCE PRN PRN Reason: Step One if no IV access. Sodium Chloride (Sodium Chloride Flush 0.9% 10 Ml Syringe) 10 ml IVP PRN PRN PRN Reason: NEEDED PER PROVIDER ORDERS Sodium Chloride (Sodium Chloride Flush 0.9% 10 Ml Syringe) 10 ml IVP Q8H MARLEN Last Admin: 06/15/23 02:18 Dose: 10 ml Terbutaline Sulfate (Terbutaline 1 Mg/Ml Vial) 0.25 mg SUBQ .ONCE PRN PRN Reason: Tachystole Aspirin [Aspirin EC] 81 mg PO 06/14/23 Levothyroxine Sodium [Synthroid] 75 mcg PO DAILY 06/14/23 Pnv No.95/Ferrous Fum/Folic AC [ Caplet] 1 tab DAILY 06/14/23 Allergies/Adverse Reactions: Allergies Allergy/AdvReac Type Severity Reaction Status Date / Time Sulfa (Sulfonamide Allergy Rash Verified 06/07/23 11:35 Antibiotics) Anes History & Medical History - Anesthetic History Anesthesia Complications: reports: No previous complications - Medical History Cardiovascular: reports: None Pulmonary: reports: None Gastrointestinal: reports: GERD Smoking Status: Never smoker - Obstetrical History : 1 Events: reports: Labor induction, Other (IVF ) Complications: reports: None Exam General: Alert, Oriented x3, Cooperative Dental: WNL Neck Mobility: Normal Mallampati classification: II Respiratory: Lungs clear Cardiovascular: Regular rate Plan Anesthesia Type: Epidural Consent for Procedure(s) Verified and Reviewed: Yes Code Status: Attempt Resuscitation ASA classification: 2-Mild systemic disease Is this case an emergency?: No
[2023-06-15] MEDS: OXYTOCIN/SODIUM CHLORIDE 500 ML IV SCH (17:19)
[2023-06-15] MEDS: LACTATED RINGERS 1,000 ML IV PRN (17:20)
[2023-06-15] MEDS ORDERED: METHYLERGONOVINE 0.2 MG/ML VIAL IM PRN (20:02)
[2023-06-15] MEDS ORDERED: ROPIVACAINE 0.2% 200 MG/100 ML BAG EP ONE (21:01)
[2023-06-15] MEDS ORDERED: LIDOCAINE-PF 2% 10 ML AMP SUBQ ONE (21:03)
[2023-06-16] MEDS ORDERED: LIDOCAINE-PF 2% 10 ML AMP SUBQ ONE (00:13)
--- NOTE | 2023-06-16 00:43 | PROVIDER PROGRESS NOTE ---
Subjective - Subjective Subjective: opened note by mistake, meant to open a labor progress note. see labor progress note. Objective - Vital Signs/Intake & Output Intake & Output: Intake & Output 06/13/23 06/14/23 06/15/23 06/16/23 23:59 23:59 23:59 23:59 Intake Total 300 18.167 Balance 300 18.167 - Lab Results Fish Bones: 06/14/23 17:20 06/14/23 17:20
--- NOTE | 2023-06-16 00:50 | PROVIDER PROGRESS NOTE ---
Labor Progress Note - Uterine Monitoring Uterine Monitoring Mode: positive: External toco Contraction Frequency (min/apart): Q2-5 Contraction Intensity: positive: Mild to moderate Uterine Resting Tone: positive: Soft - Monitoring Monitor Mode: positive: External ultrasound Heart Rate Baseline: 130 Heart Rate Variability: positive: Moderate (6-25 bmp) Accelerations: positive: Present, 15x15 Decelerations: positive: None Strip Review: positive: Category I - Vaginal Exam Dilation (in cm): 5 Effacement (%): 80 Station: -3 Cervical Position: Midposition - Labor Progress Note Labor Progress Note/Additional Text: 5cms dilated, head not well applied pt is in pain as epidural is only working on one side anesthesia present, going to re-place epidural pit at 4 continue active management
[2023-06-16] MEDS ORDERED: NALOXONE 0.4 MG/ML VIAL IVP PRN ×3 (01:06→11:59)
[2023-06-16] MEDS ORDERED: NALBUPHINE 10 MG/ML AMP IVP PRN (01:06)
[2023-06-16] MEDS ORDERED: diphenhydrAMINE INJ 50 MG/ML VIAL IVP PRN (01:06)
[2023-06-16] MEDS ORDERED: ONDANSETRON 4 MG/2 ML VIAL IVP PRN ×2 (01:06→11:59)
[2023-06-16] MEDS ORDERED: METOCLOPRAMIDE 10 MG/2 ML VIAL IVP PRN ×2 (01:06→11:59)
[2023-06-16] MEDS ORDERED: LACTATED RINGERS 500 ML IV ONE (01:06)
[2023-06-16] MEDS ORDERED: ePHEDrine 50 MG/ML VIAL IVP PRN ×2 (01:06→11:59)
[2023-06-16] MEDS: LACTATED RINGERS 1,000 ML IV PRN (01:14)
[2023-06-16] MEDS: ROPIVACAINE 0.2% 200 MG/100 ML BAG EP PRN ×2 (01:24→05:19)
[2023-06-16] MEDS ORDERED: fentaNYL 100 MCG/2 ML VIAL ONE ×2 (05:14→09:00)
[2023-06-16] MEDS ORDERED: ePHEDrine 50 MG/ML VIAL IVP ONE (08:55)
[2023-06-16] MEDS ORDERED: PHENYLEPHRINE HCL 0.5 MG/5 ML AMPULE ONE (08:55)
[2023-06-16] MEDS ORDERED: ACETAMINOPHEN 1,000 MG/100 ML 1,000 MG/100 ML BAG IV ONE (08:56)
[2023-06-16] MEDS ORDERED: ROPIVACAINE 0.5% PF 20 ML VIAL ONE ×2 (08:56→10:31)
[2023-06-16] MEDS ORDERED: ONDANSETRON 4 MG/2 ML VIAL ONE (08:56)
[2023-06-16] MEDS ORDERED: SODIUM CHLORIDE 0.9% 10 ML VIAL IVP ONE (08:56)
[2023-06-16] MEDS ORDERED: AZITHROMYCIN INJ 500 MG in SODIUM CHLORIDE 0.9% 250 ML IV ONE (08:59)
[2023-06-16] MEDS ORDERED: ceFAZolin (2G) 2 GM in SODIUM CHLORIDE 0.9% MINIBAG 100 ML IV ONE (08:59)
[2023-06-16] MEDS ORDERED: CITRIC ACID/SODIUM CITRATE 15 ML UDC PO ONE (08:59)
[2023-06-16] MEDS ORDERED: ACETAMINOPHEN 500 MG TABLET PO ONE (08:59)
--- NOTE | 2023-06-16 08:59 | PROVIDER PROGRESS NOTE ---
Labor Progress Note - Uterine Monitoring Uterine Monitoring Mode: positive: External toco Contraction Frequency (min/apart): 3 Contraction Intensity: positive: Strong Uterine Resting Tone: positive: Soft - Monitoring Monitor Mode: positive: External ultrasound Heart Rate Baseline: 125 Heart Rate Variability: positive: Moderate (6-25 bmp) Accelerations: positive: Present, 15x15 Decelerations: positive: None Strip Review: positive: Category I - Vaginal Exam Dilation (in cm): 10 Effacement (%): 100 Station: -3 ( head not in pelvis, palpable entirely out of pelvis) - Labor Progress Note Labor Progress Note/Additional Text: Patient now complete and minus 5 station baby cat 1 discussed labor curve with patient - and as a prime there should be descent, particularly now at completely dilated offer attempt at AROM and pushing vs proceeding to 1LTCS 2'2 arrest of descent counseled on RBA of both pt prefers 1LTCS will proceed to OR when available.
[2023-06-16] MEDS ORDERED: METHYLERGONOVINE 0.2 MG/ML VIAL ONE ×2 (09:04→10:12)
[2023-06-16] MEDS ORDERED: CARBOPROST TROMETHAMINE 250 MCG/ML AMP IM ONE ×2 (09:04→10:12)
[2023-06-16] MEDS ORDERED: miSOPROStoL 200 MCG TABLET ONE (09:04)
[2023-06-16] MEDS ORDERED: DEXAMETHASONE 4 MG/ML VIAL ONE (10:10)
[2023-06-16] MEDS ORDERED: KETOROLAC 30 MG/ML VIAL ONE (10:10)
[2023-06-16] MEDS ORDERED: TRANEXAMIC ACID 1,000 MG/10 ML VIAL ONE (10:31)
[2023-06-16 11:03] LABS: BASOPHILS % (AUTO) 0.2 %; HCT - HEMATOCRIT 31.5 % (37.0-47.0); HGB - HEMOGLOBIN 10.7 g/dL (12.0-16.0); LYMPHOCYTES # (AUTO) 0.7 10^3/uL (1.5-3.5); LYMPHOCYTES % (AUTO) 3.5 %; MEAN CORPUSCULAR HEMOGLOBIN 31.4 pg (27.0-31.0); MEAN CORPUSCULAR VOLUME 92.4 fL (81.0-99.0); MEAN PLATELET VOLUME 11.4 fL (7.9-10.8); MONOCYTES # (AUTO) 1.2 10^3/uL (0.0-1.0); MONOCYTES % (AUTO) 6.4 %; NEUTROPHILS # (AUTO) 17.3 10^3/uL (1.5-6.6); NEUTROPHILS % (AUTO) 89.3 %; PLT - PLATELET COUNT 229 10^3/uL (130-450); RED BLOOD COUNT 3.41 10^6/uL (4.20-5.40); RED CELL DISTRIBUTION WIDTH 12.7 % (12.0-15.0); WHITE BLOOD COUNT 19.3 x10^3/uL (4.8-10.8)
[2023-06-16] MEDS ORDERED: NIFEdipine 10 MG CAPSULE PO PRN (11:33)
[2023-06-16] MEDS ORDERED: OXYTOCIN/SODIUM CHLORIDE 500 ML IV PRN (11:33)
[2023-06-16] MEDS ORDERED: hydrALAZINE INJ 20 MG/ML VIAL IVP PRN ×2 (11:33)
[2023-06-16] MEDS ORDERED: LABETALOL 20 MG/4 ML SYRINGE IVP PRN ×3 (11:33)
[2023-06-16] MEDS ORDERED: LACTATED RINGERS 1,000 ML IV ONE (11:43)
[2023-06-16] MEDS ORDERED: MORPHINE 2 MG/ML CARPUJECT IVP PRN (11:59)
[2023-06-16] MEDS ORDERED: fentaNYL 100 MCG/2 ML VIAL IVP PRN (11:59)
[2023-06-16] MEDS ORDERED: HYDROmorphone 0.5 MG/0.5 ML SYRINGE IVP PRN (11:59)
[2023-06-16] MEDS ORDERED: ATROPINE ABBOJECT 1 MG/10 ML SYRINGE IVP PRN (11:59)
[2023-06-16] MEDS ORDERED: LACTATED RINGERS 1,000 ML IV SCH (12:00)
--- NOTE | 2023-06-16 12:21 | ANESTHESIA POST OP EVALUATION ---
Anesthesia Post Eval - Post Anesthesia Eval Vitals: Last Vital Signs Temp 36.7 C 06/14/23 22:20 Pulse 64 06/16/23 12:11 Resp 12 06/16/23 12:11 BP 113/76 06/16/23 12:11 Pulse Ox 98 06/16/23 12:11 O2 Flow Rate CV Function Including HR & BP: Stable Pain Control: Satisfactory Nausea & Vomiting: Negative Mental Status: Baseline Respiratory Status: Airway Patent Hydration Status: Satisfactory Anesthesia Complications: None
--- NOTE | 2023-06-16 12:40 | OPERATIVE REPORT ---
Operative Report - General Admit Date: 06/14/23 Planned Procedure: 1LTCS Pre-Op Diagnosis: Arrest of descent Procedure Performed: 1LTCS Post Op Diagnosis: same as above - Procedure Note Primary Surgeon: lauren Secondary Surgeon: fei barnhart Anesthesia Provider: MARILYN Anesthesia Technique: Spinal Pathology: none IV Fluids (mL): 2,000 Estimated Blood Loss (mL): 600 Urine Output (mL): 100 Indications: arrest of descent - Other Other Information/Narrative: OPERATIVE NOTE Pre-operative diagnosis: 1. IUP @ term 2. arrest of descent Procedure: 1'LTCS via pfannensteil skin incision Post-operative diagnosis: ALEX Surgeon: Lauren Secure Software Assessor: Nelson Blanca Anesthesia: Spinal Findings: viable female infant, Apgars 9/9, born at 0956 normal uterus normal tubes & ovaries bilaterally no notable adhesions Complications: None apparent EBL: 600cc IVF 2L UOP: 150cc Procedure in detail: After risks benefits and alternatives, as well as indication for procedure and anticipated post-operative recovery course, were discussed with the patient informed consent was obtained and patient was taken to the operating theater where spinal anesthesia was administered without difficulty. Tan catheter was inserted in normal sterile fashion. Pt was prepared and draped in normal sterile fashion. Anesthesia was tested and found to be adequate. Prior to skin incision pt received recommended antibiotics, surgical time out was performed, and all persons in the operating theater participated in time out and agreed. Pfannensteil skin incision made with scalpel. Carried down to level of fasia. Fascia incised with scalpel and extended. Anterior aspect of rectus sheath dissected off of rectus muscle without difficulty. Peritoneum entered without difficulty and surgical field extended with gentle lateral traction. Lower uterine segment identified, well developed. Uterine incision made with scalpel, uterus entered bluntly and incision extended bluntly. Surgeons right hand entered into lower uterine segment, presenting part elevated to level of incision and infant delivered atraumatically. Cord clamped and cut x2, baby handed to awaiting breastfeeding educator, apgars as noted above. Placenta delivered manually. Uterus exteriorized and wrapped in moist lap. Uterine cavity cleaned with moist lap and found to be free of membranes or debris. Uterine incision closed with 0 vicryl, running suture, additional extension down L cervix identified and closed in two layers - with more superficial closed with 2.0 vicryl. Uterus and subsequently imbricated with 0 vicryl. Incision inspected, hemostatic. Gutters cleaned. Uterus returned to abdominal cavity. Incision then started bleeding from L angle. Uterus exteriorized again, seemed to have hermatoma over inferior aspect of anterior uterus - below the incision. two figure of 8 sutures placed on extension. pressure applied. TXA given. and then second OBGYN called to evaluate hematoma - she evaluated, returned uterus to abdominal cavity, found the hematoma unremarkable, and recommended closure. All inspected, hemostatic. Peritoneum reapproximated without suture. Muscles inspected, fascia inspected, hemostatic. Fascia closed with looped PDS in running fashion. Subcutaneous tissue irrigated, and then closed with 2.0 vicryl in running fashion. Skin incision closed with subcuticular sutures with 4.0 vicryl. Pt and infant tolerated procedure well. All counts correct. Pt to PACU in stable condition.
[2023-06-16] MEDS: KETOROLAC 30 MG/ML VIAL IVP SCH ×2 (14:34→20:29)
[2023-06-16 16:35] LABS: HGB - HEMOGLOBIN 11.3 g/dL (12.0-16.0); MEAN CORPUSCULAR HEMOGLOBIN 30.8 pg (27.0-31.0); MEAN CORPUSCULAR HGB CONC 33.2 g/dL (32.0-36.0); MEAN CORPUSCULAR VOLUME 92.6 fL (81.0-99.0); RED BLOOD COUNT 3.67 10^6/uL (4.20-5.40); RED CELL DISTRIBUTION WIDTH 12.6 % (12.0-15.0); WHITE BLOOD COUNT 21.4 x10^3/uL (4.8-10.8)
[2023-06-16] MEDS: SODIUM CHLORIDE FLUSH 0.9% 10 ML SYRINGE IVP SCH ×3 (17:33→17:37)
[2023-06-16] MEDS: miSOPROStoL 100 MCG TABLET BC SCH ×2 (17:33→17:34)
[2023-06-16] MEDS: LEVOTHYROXINE 75 MCG TABLET PO SCH (17:35)
[2023-06-16] MEDS: ACETAMINOPHEN 500 MG TABLET PO SCH ×2 (17:36→18:44)
[2023-06-16] MEDS: OXYTOCIN/SODIUM CHLORIDE 500 ML IV SCH (17:36)
[2023-06-16] MEDS: SODIUM CHLORIDE FLUSH 0.9% 10 ML SYRINGE IVP PRN (20:29)
[2023-06-16] MEDS: DOCUSATE SODIUM 100 MG CAPSULE PO SCH (20:29)
[2023-06-16 22:12] LABS: BASOPHILS % (AUTO) 0.2 %; HCT - HEMATOCRIT 31.7 % (37.0-47.0); HGB - HEMOGLOBIN 10.6 g/dL (12.0-16.0); LYMPHOCYTES # (AUTO) 1.2 10^3/uL (1.5-3.5); LYMPHOCYTES % (AUTO) 5.9 %; MEAN CORPUSCULAR HEMOGLOBIN 30.9 pg (27.0-31.0); MEAN CORPUSCULAR HGB CONC 33.4 g/dL (32.0-36.0); MEAN CORPUSCULAR VOLUME 92.4 fL (81.0-99.0); MEAN PLATELET VOLUME 11.4 fL (7.9-10.8); MONOCYTES # (AUTO) 0.6 10^3/uL (0.0-1.0); MONOCYTES % (AUTO) 2.8 %; NEUTROPHILS % (AUTO) 90.6 %; PLT - PLATELET COUNT 251 10^3/uL (130-450); RED BLOOD COUNT 3.43 10^6/uL (4.20-5.40); RED CELL DISTRIBUTION WIDTH 12.4 % (12.0-15.0); WHITE BLOOD COUNT 19.9 x10^3/uL (4.8-10.8)
[2023-06-17] MEDS: SIMETHICONE CHEW 80 MG TABLET PO PRN ×5 (00:25→21:13)
[2023-06-17] MEDS: ACETAMINOPHEN 500 MG TABLET PO SCH ×3 (02:24→19:46)
[2023-06-17] MEDS: SODIUM CHLORIDE FLUSH 0.9% 10 ML SYRINGE IVP PRN (02:26)
[2023-06-17] MEDS ORDERED: KETOROLAC 30 MG/ML VIAL IVP SCH (02:30)
--- NOTE | 2023-06-17 06:23 | PROVIDER PROGRESS NOTE ---
Subjective - Prog Note Date Prog Note Date: 06/17/23 Prog Note Time: 06:21 - Subjective Pt reports feeling: Improved Subjective: Pt well, lochia appropriate, + amb, + void, + krystal PO, + flatus Feeding going well -- Bonding with baby Denies: F/C/N/V/CP/SOB Denies: dizziness, weakness, lightheadedness, difficulty with ambulation, palpitations Denies: GARCIA / visual changes Objective - Vital Signs/Intake & Output Vital Signs: Vital Signs x48h Temp Pulse Resp BP Pulse Ox 06/17/23 04:36 67 16 112/77 06/17/23 01:00 98.4 F 68 16 116/67 99 Intake & Output: Intake & Output 06/14/23 06/15/23 06/16/23 06/17/23 23:59 23:59 23:59 23:59 Intake Total 300 521.067 551.903 Output Total 1450 325 Balance 300 521.067 -898.097 -325 - Objective General Appearance: positive: No acute distress, Alert Eyes Bilateral: positive: Normal inspection ENT: positive: ENT inspection nml Neck: positive: Nml inspection Respiratory: positive: Chest non-tender, No respiratory distress, Breath sounds nml Cardiovascular: positive: Regular rate & rhythm, No murmur, No gallop Abdomen: positive: Non-tender, Other (izzy 1 below U inc CDI sutures) Skin: positive: Color nml, No rash, Warm, Dry Extremities: positive: Non-tender, No pedal edema Neurologic/Psychiatric: positive: Oriented x3 - Lab Results Fish Bones: 06/16/23 22:00 06/14/23 17:20 Other Labs: Lab Results x24hrs 06/16/23 06/16/23 06/16/23 Range/Units 22:00 16:30 10:56 WBC 19.9 H 21.4 H 19.3 H (4.8-10.8) x10^3/uL RBC 3.43 L 3.67 L 3.41 L (4.20-5.40) 10^6/uL Hgb 10.6 L 11.3 L 10.7 L (12.0-16.0) g/dL Hct 31.7 L 34.0 L 31.5 L (37.0-47.0) % MCV 92.4 92.6 92.4 (81.0-99.0) fL MCH 30.9 30.8 31.4 H (27.0-31.0) pg MCHC 33.4 33.2 34.0 (32.0-36.0) g/dL RDW 12.4 12.6 12.7 (12.0-15.0) % Plt Count 251 245 229 (130-450) 10^3/uL MPV 11.4 H 11.0 H 11.4 H (7.9-10.8) fL Neut # (Auto) 18.0 H 17.3 H (1.5-6.6) 10^3/uL Lymph # (Auto) 1.2 L 0.7 L (1.5-3.5) 10^3/uL Moffat # (Auto) 0.6 1.2 H (0.0-1.0) 10^3/uL Eos # (Auto) 0.0 0.0 (0.0-0.7) 10^3/uL Baso # (Auto) 0.0 0.0 (0.0-0.1) 10^3/uL Absolute Nucleated RBC 0.00 0.00 x10^3/uL Nucleated RBC % 0.0 0.0 /100WBC Assessment/Plan - Problem List (1) Arrest of descent, delivered, current hospitalization Impression: resolved continue to advance anticipate D/C home tomorrow (3) Exclusive by mother Impression: continue support (4) Post-dates , delivered, current hospitalization Impression: resolved continue to advance anticipate D/C home tomorrow (5) Anemia Impression: stable, start PO iron
[2023-06-17] MEDS: KETOROLAC 30 MG/ML VIAL IVP SCH (08:41)
[2023-06-17] MEDS: LEVOTHYROXINE 75 MCG TABLET PO SCH (08:44)
[2023-06-17] MEDS: DOCUSATE SODIUM 100 MG CAPSULE PO SCH ×2 (08:44→21:12)
[2023-06-17] MEDS: FERROUS SULFATE 325 MG TABLET PO SCH ×2 (08:44→17:21)
[2023-06-17] MEDS: IBUPROFEN 600 MG TABLET PO SCH ×3 (08:48→21:13)
[2023-06-17] MEDS: oxyCODONE 5 MG TABLET PO PRN ×3 (13:40→22:15)
[2023-06-18] MEDS: oxyCODONE 5 MG TABLET PO PRN ×4 (02:21→13:45)
[2023-06-18] MEDS: IBUPROFEN 600 MG TABLET PO SCH ×2 (03:33→08:36)
[2023-06-18] MEDS: ACETAMINOPHEN 500 MG TABLET PO SCH ×2 (03:33→11:15)
--- NOTE | 2023-06-18 06:29 | DISCHARGE SUMMARY ---
Discharge Summary Admit Date: 06/14/23 Discharge Date: 06/16/23 Discharging Provider: nori Primary Care Provider: nori Code Status: Attempt Resuscitation Condition at Discharge: Good Discharge Disposition: Home, Self Care - DIAGNOSES Admission Diagnoses: IUP post dates IVF AMA Discharge Diagnoses with Status of Each Condition: IUP post dates - resolved IVF AMA - resolved Arrest of Descent - resolved S/P C/S - all milestones met, OK to D/C home - using nipple walker, continue support - HPI History of Present Illness: Pt well, lochia appropriate, + amb, + void, + krystal PO, + flatus Feeding going well -- breast Bonding with baby Denies: F/C/N/V/CP/SOB Denies: dizziness, weakness, lightheadedness, difficulty with ambulation, palp itations Denies: GARCIA / visual changes reviewed discharge instructions in detail and precautions all questions answered all milestones met ready to D/C home. - HOSPITAL COURSE Hospital Course: Pt presented for IOL uncomplicated received miso and pitocin got epidurals x2, without relief dilated to 10cms with no descent proceeded to OR for 1LTCS without complication for details see operative report routine PO / PP care D/C home POD#2 with baby girl. - ALLERGIES Allergies/Adverse Reactions: Allergies Allergy/AdvReac Type Severity Reaction Status Date / Time Sulfa (Sulfonamide Allergy Rash Verified 06/07/23 11:35 Antibiotics) - MEDICATIONS Home Medications: Ambulatory Orders Medication Instructions Recorded Confirmed Aspirin [Aspirin EC] 81 mg PO 06/14/23 Levothyroxine Sodium [Synthroid] 75 mcg PO DAILY 06/14/23 06/14/23 Pnv No.95/Ferrous Fum/Folic AC 1 tab DAILY 06/14/23 06/14/23 [ Caplet] - PHYSICAL EXAM AT DISCHARGE General Appearance: positive: No acute distress Eyes Bilateral: positive: Normal inspection ENT: positive: ENT inspection nml Neck: positive: Nml inspection Respiratory: positive: Chest non-tender, No respiratory distress, Breath sounds nml Cardiovascular: positive: Regular rate & rhythm, No murmur, No gallop Abdomen: positive: Non-tender, Other (izzy at INC CDI sutures) Extremities: positive: Non-tender, Full ROM, No pedal edema Neurologic/Psychiatric: positive: Oriented x3, Mood/affect nml - LABS Result Diagrams: 06/16/23 22:00 06/14/23 17:20 - QUALITY (Female Hip Fx Only) Was patient sent home on osteoporosis medication?: No - FOLLOW UP Follow Up: [facility] for baby appointments - TIME SPENT Time Spent in Discharge (Minutes): 30
--- NOTE | 2023-06-18 06:37 | Discharge Plan ---
Discharge Plan Problem Reviewed?: Yes Disposition: Home, Self Care Condition: Good Prescriptions: oxyCODONE [Roxicodone] 5 mg PO Q4HR PRN #17 tab PRN Reason: Severe Pain 6 -10 Ibuprofen [Motrin] 600 mg PO Q6HR #60 tab Docusate Sodium 100Mg Capsule [Colace 100Mg Capsule] 200 mg PO BID #45 cap Ferrous Sulfate [Feosol] 325 mg PO BIDWM #60 tab Acetaminophen [Tylenol] 1,000 mg PO Q8H #60 tab Diet: Regular Activity Restrictions: No Restrictions Shower Restrictions: No Driving Restrictions: No Assistance Devices: Wheelchair Weight Bearing: Full Weight Instruction Topics: Childbirth Breast Care, , Depression , Change Expect Parents Health Concerns: routine routine post op anemia . Plan of Treatment: routine routine post op anemia Care Goals: routine routine post op anemia Assessment: healthy post post op mother ready to D/C home to supportive household No Smoking: If you smoke, Please STOP! Call for help.
[2023-06-18] MEDS: FERROUS SULFATE 325 MG TABLET PO SCH (07:54)
[2023-06-18] MEDS: LEVOTHYROXINE 75 MCG TABLET PO SCH (07:54)
[2023-06-18] MEDS: DOCUSATE SODIUM 100 MG CAPSULE PO SCH (08:37)
[2023-06-18 09:15] VITALS: BP 127/70; O2SAT 100
--- NOTE | 2023-06-18 14:42 | Labor Flowsheet ---
Labor Flowsheet Datetime Report Generated by CPN: 06/18/2023 14:42 Datetime: 06/18/2023 08:56 VITAL SIGNS NBP Sys/Charleen/Mean (mmHg): 127 : 70 : 81 Pulse: 66 LaborFlag: Labor Datetime: 06/18/2023 01:14 SpO2 (%): 99 Datetime: 06/16/2023 09:11 Quality: Strong Pattern: Normal: <= 5 Contractions in 10 Minutes Resting Tone (Palpate): Relaxed Contraction Comments: unable to assess. pt to OR ASSESSMENT A Monitor Mode: External US FHR Baseline Rate : 130 FHR Baseline Changes: No Baseline Change Variability: Moderate 6-25 bpm Accelerations: 15X15 Decelerations: None Category: Category I Oxygen Method: Room Air Datetime: 06/16/2023 09:04 Anesthesia Comments: OR at bedside Datetime: 06/16/2023 08:45 Comments: unable to assess due to interupted strip Datetime: 06/16/2023 08:21 MEDICATIONS Pitocin (milliunits): Discontinued Datetime: 06/16/2023 08:08 COMMUNICATION Communication: Provider at Bedside Provider Notified (Name): Dr. Lauren Datetime: 06/16/2023 07:45 Monitor Interventions for UA: Rillito Adjusted Monitor Interventions for FHR: Ultrasound Adjusted Datetime: 06/16/2023 07:30 UTERINE ACTIVITY Monitor Mode: External Frequency (min): 3 Duration (sec): 50-60 Datetime: 06/16/2023 07:29 Stage of : Labor Notification Reason: Labor Status; Membrane Status Datetime: 06/16/2023 07:25 Patient Position/Activity: Right Extreme Patient Care Comments: peanut ball Datetime: 06/16/2023 07:21 VAGINAL EXAM Dilatation (cm): 10.0 Station: -1 Exam by: Arely Hernández Vaginal Exam Comments: bulging bag Datetime: 06/16/2023 07:00 Pitocin Checklist: At Least 1 Acceleration of 15 bpm x 15 Seconds in 30 Minutes or Adequate Variabi lity; No More than 1 Late Deceleration Occurred in Past 30 Minutes; No More than 2 Variable Decelerat ions > 60 Seconds in Duration and decreasing >60 bpm in 30 minutes; No More than 5 Uterine Contractio ns in 10 Minutes for any 20 Minute Interval; Uterus Palpates Soft between Contractions Datetime: 06/16/2023 06:26 PATIENT CARE IV/Blood Work: IV Bolus Started; IV Bolus Given ml @ 250 Datetime: 06/16/2023 06:07 I/O Interventions: Clear Liquids Given Datetime: 06/16/2023 05:45 Effacement (%): 100 Vaginal Bleeding: Scant Cervix, Consistency: Soft Datetime: 06/16/2023 05:43 Membrane Status: Ruptured Membranes Rupture Method: Spontaneous Amniotic Fluid Color: Clear Amniotic Fluid Amount: Small Datetime: 06/16/2023 05:02 PAIN Pain Scale: 9 Datetime: 06/16/2023 05:00 Actions for Decelerations: Provider Notified Datetime: 06/16/2023 04:01 Communication Comments: MD aware of strip pattern, reviewing POC. Orders received to continue pit o n 6 mu/min, cut in half if another late occurs, otherwise "keep going". Datetime: 06/16/2023 03:55 Analgesics/Sedatives: Fentanyl (mcg) @ 50 Datetime: 06/16/2023 03:46 Provider Reviewed Strip: Yes Datetime: 06/16/2023 02:02 Temperature (C): 37.0 Anesthesia Level Check: T12 Datetime: 06/16/2023 01:05 Pain Assessment Comments: feeling pressure, not much pain Datetime: 06/16/2023 00:51 Epidural Procedure: Loading Dose; Completed Datetime: 06/16/2023 00:31 PROCEDURE TIME OUT Procedure Verify: Correct Patient Position Epidural Procedure Other: Cath Removed; Cath Intact Datetime: 06/16/2023 00:18 Anesthesia Interventions Other: Other Datetime: 06/15/2023 21:13 Vital Sign Comments: Contraction happening Datetime: 06/15/2023 21:07 ANESTHESIA Epidural Positioning: Sitting Datetime: 06/15/2023 20:30 Cervix, Position: Midposition Datetime: 06/15/2023 20:10 Pain Relief Measures: Comfort Measures Pain Coping: Breathing Through Contractions Comfort Measures: Breathing/Relaxation Datetime: 06/15/2023 19:16 Respirations: 19 Temperature Route: Oral Datetime: 06/15/2023 18:56 Medication Comments: Nitrous off Datetime: 06/15/2023 18:34 Pain Location: Back Datetime: 06/15/2023 18:25 Pain Presence: Intermittent Pain Type: Contraction Datetime: 06/15/2023 09:30 Intensity IUP (mmHg): 60-120 Datetime: 06/15/2023 09:14 Cervical Ripening Agents: Cytotec @ Datetime: 06/14/2023 20:07 Strip Reviewed by: [email or web address],rn Datetime: 06/14/2023 19:26 MATERNAL ASSESSMENT Level of Consciousness: Alert DTR's/Clonus: DTRs 1+ Headache: Denies Nausea/Vomiting: Denies RUQ Epigastric Pain: Denies TEACHING Instructional Method: Verbal Plan of Care: Plan of Care Discussed Labor/Induction: Induction Datetime: 06/03/2023 13:38 Membranes Ruptured Date/Time: 06/16/2023 05:43 Datetime: 05/27/2023 08:22 Vibroacoustic Stim: done
== END 2023-06-18 14:15 | disposition home or self-care (01) | DRG 788 ==
LOC: WFO 16:52 → FBP 16:53 → WFO 17:44 → FBP 17:45
PROVIDERS: ADMIT Obstetrics & Gynecology; ATTEND Obstetrics & Gynecology
PROC: 3E0P7VZ Introduction of Hormone into Female Reproductive, Via Natural or Artificial Opening (ICD-10-PCS; principal; 2023-06-14)
PROC: 10D00Z1 Extraction of Products of Conception, Low, Open Approach (ICD-10-PCS; 2023-06-16)
DX: O48.0 Post-term pregnancy (principal); Z3A.40 40 weeks gestation of pregnancy; O99.214 Obesity complicating childbirth; O62.1 Secondary uterine inertia; Z37.0 Single live birth; O32.4XX0 Maternal care for high head at term, not applicable or unspecified; O90.81 Anemia of the puerperium
CPT/HCPCS: 36415; 80053; 82570; 84156; 84550; 85025; 85027; 86850; 86900; 86901; A9270; J0131; J1200; J2372; J2765; J2795; J7120; Q0162

== ENCOUNTER 2023-06-19 16:05 | Outpatient (CLI) | payer OTHER ==
[2023-06-19 16:21] LABS: HCT - HEMATOCRIT 29.9 % (37.0-47.0); HGB - HEMOGLOBIN 9.9 g/dL (12.0-16.0); MEAN CORPUSCULAR HEMOGLOBIN 30.8 pg (27.0-31.0); MEAN CORPUSCULAR HGB CONC 33.1 g/dL (32.0-36.0); MEAN CORPUSCULAR VOLUME 93.1 fL (81.0-99.0); MEAN PLATELET VOLUME 10.5 fL (7.9-10.8); RED BLOOD COUNT 3.21 10^6/uL (4.20-5.40); RED CELL DISTRIBUTION WIDTH 12.2 % (12.0-15.0); WHITE BLOOD COUNT 8.9 x10^3/uL (4.8-10.8)
[2023-06-19 16:49] LABS: ALBUMIN 3.1 g/dL (3.2-5.5); ALBUMIN/GLOBULIN RATIO 1.1 (1.0-2.2); BILIRUBIN,TOTAL 0.3 mg/dL (0.2-1.0); CREATININE 0.7 mg/dL (0.6-1.3); POTASSIUM 3.7 mmol/L (3.5-4.5); TOTAL PROTEIN 5.9 g/dL (6.4-8.9); URIC ACID 4.3 mg/dL (2.3-6.6)
[2023-06-19 16:57] LABS: CREATININE,URINE 94.5 mg/dL; PROTEIN/CREATININE RATIO,URINE 0.1 (<=0.2)
== END 2023-06-19 16:06 | disposition home or self-care (01) ==
LOC: LAB 16:05
PROVIDERS: ATTEND Obstetrics & Gynecology
DX: O13.9 Gestational [pregnancy-induced] hypertension without significant proteinuria, unspecified trimester (principal)
CPT/HCPCS: 36415; 80053; 82570; 84156; 84550; 85027

== ENCOUNTER 2023-06-22 15:26 | Outpatient (CLI) | payer OTHER ==
[2023-06-22 17:41] LABS: HCT - HEMATOCRIT 30.7 % (37.0-47.0); MEAN CORPUSCULAR HEMOGLOBIN 30.6 pg (27.0-31.0); MEAN CORPUSCULAR HGB CONC 32.6 g/dL (32.0-36.0); MEAN CORPUSCULAR VOLUME 93.9 fL (81.0-99.0); MEAN PLATELET VOLUME 11.1 fL (7.9-10.8); RED BLOOD COUNT 3.27 10^6/uL (4.20-5.40); RED CELL DISTRIBUTION WIDTH 12.8 % (12.0-15.0); WHITE BLOOD COUNT 7.7 x10^3/uL (4.8-10.8)
[2023-06-22 18:18] LABS: CREATININE,URINE 37.9 mg/dL; PROTEIN/CREATININE RATIO,URINE 0.3 (<=0.2)
== END 2023-06-22 15:27 | disposition home or self-care (01) ==
LOC: LAB.N 15:26
PROVIDERS: ATTEND Obstetrics & Gynecology
DX: Z13.6 Encounter for screening for cardiovascular disorders (principal)
CPT/HCPCS: 36415; 82570; 84156; 85027

== ENCOUNTER 2023-12-01 12:18 | Day surgery (SDC) | payer OTHER ==
[2023-12-01 12:37] LABS: HCG UR QUAL NEGATIVE
[2023-12-01] MEDS: LACTATED RINGERS 1,000 ML IV ONE (13:08)
--- NOTE | 2023-12-01 14:15 | ANESTHESIA ---
Pre-Anesthesia VS, & Labs - Diagnosis dysphagia - Procedure EGD Vital Signs: Temp Pulse Resp BP Pulse Ox O2 Flow Rate 37.2 C 73 19 146/98 H 99 12/01/23 12:41 12/01/23 12:41 12/01/23 12:41 12/01/23 12:41 12/01/23 12:41 Height: 5 ft 4 in Weight (kg): 98 kg Body Mass Index: 37.0 BMI Classification: Obese - NPO >8 hours - Is Patient ?: No - Lab Results Lab results reviewed: Yes Home Medications and Allergies Home Medications: Ambulatory Orders Famotidine [Acid Binder Cutter Hand] 20 mg PO DAILY 12/01/23 Levocetirizine Dihydrochloride [Xyzal] 5 mg PO DAILY 12/01/23 Phentermine HCl 37.5 mg PO DAILY 12/01/23 Famotidine [Acid Binder Cutter Hand] 20 mg PO DAILY 12/01/23 Levocetirizine Dihydrochloride [Xyzal] 5 mg PO DAILY 12/01/23 Phentermine HCl 37.5 mg PO DAILY 12/01/23 Allergies/Adverse Reactions: Allergies Allergy/AdvReac Type Severity Reaction Status Date / Time Sulfa (Sulfonamide Allergy Rash Verified 06/07/23 11:35 Antibiotics) Anes History & Medical History - Anesthetic History Anesthesia Complications: reports: No previous complications Family history of Anesthesia Complications: Denies Family history of Malignant Hyperthermia: Denies - Medical History Cardiovascular: reports: None Pulmonary: reports: None Gastrointestinal: reports: Hiatal hernia Urinary: reports: None Neuro: reports: None Musculoskeletal: reports: None Endocrine/Autoimmune: reports: HyPOthyroidism Skin: reports: None Smoking Status: Never smoker Psychosocial: reports: No issues indicated History of Cancer?: No - Surgical History Gynecologic: reports: section Exam General: Alert, Oriented x3, Cooperative, No acute distress Dental: WNL Mouth Openin Fingerbreadth Neck Mobility: Normal Mallampati classification: II Thyromental Distance: 4-6 cm Mental/Cognitive Status: Alert/Oriented X3, Normal for patient Plan Anesthesia Type: General, Total IV Consent for Procedure(s) Verified and Reviewed: Yes Code Status: Attempt Resuscitation ASA classification: 2-Mild systemic disease Is this case an emergency?: No
[2023-12-01] MEDS ORDERED: PROPOFOL 200 MG/20 ML VIAL IVP ONE (14:33)
[2023-12-01] MEDS ORDERED: LIDOCAINE-MPF 2% 5 ML VIAL ONE (14:33)
[2023-12-01] MEDS: LACTATED RINGERS 600 ML IV ONE (14:48)
--- NOTE | 2023-12-01 15:00 | ANESTHESIA POST OP EVALUATION ---
Anesthesia Post Eval - Post Anesthesia Eval Vitals: Last Vital Signs Temp 37 C 12/01/23 14:48 Pulse 90 12/01/23 14:48 Resp 16 12/01/23 14:48 BP 120/58 L 12/01/23 14:48 Pulse Ox 95 12/01/23 14:48 O2 Flow Rate CV Function Including HR & BP: Stable Pain Control: Satisfactory Nausea & Vomiting: Negative Mental Status: Baseline Respiratory Status: Airway Patent Hydration Status: Satisfactory Anesthesia Complications: None
[2023-12-01 15:10] VITALS: BP 133/88; O2SAT 99
== END 2023-12-01 12:19 | disposition home or self-care (01) ==
LOC: SDS 12:18
PROVIDERS: ATTEND Surgery
PROC: 0DB28ZX Excision of Middle Esophagus, Via Natural or Artificial Opening Endoscopic, Diagnostic (ICD-10-PCS; 2023-12-01)
PROC: 0DB38ZX Excision of Lower Esophagus, Via Natural or Artificial Opening Endoscopic, Diagnostic (ICD-10-PCS; principal; 2023-12-01 13:30)
DX: R13.10 Dysphagia, unspecified (principal); K44.9 Diaphragmatic hernia without obstruction or gangrene; K22.2 Esophageal obstruction; E66.9 Obesity, unspecified; Z68.37 Body mass index [BMI] 37.0-37.9, adult
CPT/HCPCS: 43239; 81025; J7120